=== PATIENT | male | born 1985 | race African-American/Black ===

== ENCOUNTER 2017-01-22 05:07 | Emergency (ER) | payer SELFPAY ==
[2017-01-22] MEDS ORDERED: ALBUTEROL SULFATE/IPRATROPIUM 3 ML NEBU IH ONE ×3 (05:10)
[2017-01-22] MEDS ORDERED: METHYLPREDNISOLONE SOD SUCC/PF 40 MG/ML VIAL IV ONE (05:10)
[2017-01-22 05:39] VITALS: BP 127/76
--- NOTE | 2017-01-22 06:01 | ERNOTE ---
Dyspnea - General Time Seen by Provider: 01/22/17 05:10 Source: patient Exam Limitations: no limitations - Immun/Allergies/Home Medications Immunizations: IMMUNIZATION HX Immunizations Up to Date Yes History of Influenza Vaccine No Hx Pneumococcal Vaccination No Home Medications: HOME MEDICATIONS Albuterol Sulfate [Proair Hfa] 1 - 2 puff IH Q4H PRN #1 inhaler 01/22/17 [Last Taken Unknown] - History of Present Illness Narrative: pt is a diabetic who does not have his inhaler on his person. He has been out for a while. he started feeling short of breath at midnight but did not present to ED till now. Review of Systems - Review of Systems Constitutional: Present: no symptoms reported EYE: Present: no symptoms reported ENT: Present: no symptoms reported Respiratory: Present: See HPI Cardiology: Present: no symptoms reported Gastrointestinal/Abdominal: Present: no symptoms reported - Patient's Past Medical History Patient History - Cardiac/Respiratory: Asthma Patient History - Cancer: No Hx of Cancer Patient History - Other: None - Social History Living Situations: home Abuse History: No History of abuse Psych History: No pertinent hx Smoking Status: Current every day smoker Have you smoked in the past 12 months: Yes Do you dip or chew tobacco: No Alcohol Use: none Drug Use: none - Immunizations Immunizations Up to Date: Yes Hx Pneumococcal Vaccination: No History of Influenza Vaccine: No Physical Exam - Physical Exam General Appearance: Present: wd/wn, other - pt is anxious and is wheezing audibly Ears, Nose, Throat: Present: normal ENT inspection Neck: Present: normal inspection, nontender Respiratory: Present: other - pt has mild respiratory distress and is tachypneic and is wheezing bilaterally only on end expiration ED Progress - Vital Signs Patient's Vital Signs:: I have reviewed the patient's vital signs. Vital Signs: Vital Signs 01/22/17 01/22/17 01/22/17 05:10 05:12 05:21 Temperature 36.6 C Pulse Rate 80 90 82 Respiratory 22 H 22 H 20 Rate Blood Pressure 125/86 O2 Sat by Pulse 96 92 98 Oximetry 01/22/17 05:39 Temperature Pulse Rate 76 Respiratory 18 Rate Blood Pressure 127/76 O2 Sat by Pulse 96 Oximetry - X-Ray X-Ray #1 X-Ray: chest - Progress/Reassessment Chief Complaint: Dyspnea Plan - Plan Plan: pt's wheezing completely disappeared with Breathing treatments X 2. he will be sent home with a prescription for Albuterol inhaler Departure Clinical Impression: Asthma Qualifiers: Asthma severity: unspecified severity Asthma complication type: with acute exacerbation Qualified Code(s): J45.901 - Unspecified asthma with (acute) exacerbation - Departure Disposition: Home self-care Condition: Good Instructions: Bronchospasm, Adult Prescriptions: Albuterol Sulfate [Proair Hfa] 1 - 2 puff IH Q4H PRN #1 inhaler PRN Reason: Shortness Of Breath
== END 2017-01-22 06:05 | disposition home or self-care (01) ==
LOC: ER 05:07
DX: J45.901 Unspecified asthma with (acute) exacerbation (principal); F17.200 Nicotine dependence, unspecified, uncomplicated

== ENCOUNTER 2017-01-30 00:34 | Emergency (ER) | payer MEDICAID ==
[2017-01-30] MEDS ORDERED: METHYLPREDNISOLONE SOD SUCC/PF 125 MG/2 ML VIAL IM ONE (00:48)
--- NOTE | 2017-01-30 00:52 | ERNOTE ---
Date of Service: 01/30/17 Time Seen by Provider: 01/30/17 00:42 Stated Complaint: ASTHMA Presenting Symptoms:: cough Immunizations: IMMUNIZATION HX Immunizations Up to Date Yes History of Influenza Vaccine No Hx Pneumococcal Vaccination No Allergies/Adverse Reactions: Allergies No Known Allergies Allergy (Verified 01/30/17 00:40) Home Medications: HOME MEDICATIONS Albuterol Sulfate [Proair Hfa] 1 - 2 puff IH Q4H PRN #1 inhaler 01/22/17 [Last Taken Unknown] Albuterol Sulfate [Albuterol Sulfate 2.5 MG/0.5ML] 1 vial IH Q4H #30 vial [Last Taken Unknown] Albuterol Sulfate [Ventolin HFA] 1 puff IH Q6H PRN #1 inhaler 01/30/17 [Last Taken Unknown] Prednisone 60 mg PO DAILY #5 tablet 01/30/17 [Last Taken Unknown] - History of Present Ilness Narrative: This is a 31-year-old male with a history of asthma who was seen here in the emergency department one week ago. The patient comes to the emergency department several days after losing his rescue inhaler. The patient says he's been having frequent cough, shortness of breath, wheezing. He says these are his classic stigmata of asthma exacerbation. He complains of a mild occasional sharp chest discomfort which occurs only with respiration last for only a few seconds at a time. The patient denies any chest pain radiating down his left arm and his back into his neck, swelling, nausea, vomiting, or any other symptoms. The patient is a smoker. Review of Systems - Review of Systems Constitutional: Present: no symptoms reported EYE: Present: no symptoms reported ENT: Present: no symptoms reported Respiratory: Present: shortness of breath, cough, wheezing Cardiology: Present: no symptoms reported Gastrointestinal/Abdominal: Present: no symptoms reported Genitourinary: Present: no symptoms reported Musculoskeletal: Present: no symptoms reported Skin: Present: no symptoms reported Neurological: Present: no symptoms reported Endocrine: Present: no symptoms reported Hematologic/Lymphatic: Present: no symptoms reported Psych: Present: no symptoms reported All Other Systems: All systems neg except as marked - Patient's Past Medical History Patient History - Cardiac/Respiratory: Asthma Patient History - Cancer: No Hx of Cancer Patient History - Other: None - Social History Living Situations: home Abuse History: No History of abuse Psych History: No pertinent hx Smoking Status: Current every day smoker Alcohol Use: none Drug Use: none - Immunizations Immunizations Up to Date: Yes Hx Pneumococcal Vaccination: No History of Influenza Vaccine: No Physical Exam - Physical Exam General Appearance: Present: wd/wn, alert, no apparent distress Head Exam: Present: normal inspection, no evidence of injury Eye Exam: Normal inspection: bilateral, PERRL: bilateral, EOMI: bilateral Ears, Nose, Throat: Present: normal ENT inspection, normal pharynx Neck: Present: normal inspection, nontender Respiratory: Present: other - patient has decreased air entry throughout. He has rhonchi in the upper lung potts. Prolonged expiratory phase with wheezing. Cardiovascular/Chest: Present: regular rate, rhythm, no murmur, normal peripheral pulses Gastrointestinal/Abdominal: Present: normal bowel sounds, nontender, nondistended, soft, no organomegaly Back Exam: Present: normal inspection, normal range of motion Extremity Exam: Present: normal inspection, non-tender, no edema Neurological Exam: Present: oriented, normal mood/affect, no motor/sensory deficits Skin Exam: Present: normal color, warm/dry Lymphatic Exam: Present: no adenopathy ED Progress - Vital Signs Patient's Vital Signs:: I have reviewed the patient's vital signs. Vital Signs: Vital Signs 01/30/17 00:37 Temperature 86 C H Pulse Rate 96 Respiratory 20 Rate Blood Pressure 127/67 O2 Sat by Pulse 97 Oximetry - Progress/Reassessment Chief Complaint: Asthma Progress:: Improved Progress Note-Subjective: 01/30/17 02:03 The patient has had 2 breathing treatments as well as a dose of steroids. He still has occasional wheezes but is moving much better air. He says his symptoms have essentially resolved. Departure - Departure Clinical Impression: Asthma Qualifiers: Asthma severity: unspecified severity Asthma complication type: with acute exacerbation Qualified Code(s): J45.901 - Unspecified asthma with (acute) exacerbation Disposition: Home self-care Condition: Stable Instructions: Asthma, Adult, [id number] Additional Instructions: As we have discussed, the single most important thing you can do to improve your own health history quit smoking. I want you to take all 5 days of the prescribed prednisone. Do not stop this early I've given a new inhaler to go home with. Use this as needed to treat your symptoms. If you find herself using it more than twice a week he need to talk to your doctor about another form of treatment. I have also given you a prescription for an albuterol inhaler. Keep this at the pharmacy in case she lives 1. I've given her prescription for albuterol nebulizer treatments. Fill this prescription and use as needed. We have given you a couple of ampules of albuterol solution to go home with. Call and establish care with the family doctor. You should not need to wait and to actually have insurance before he make this appointment. You could certainly tell them you were pending for yourself [id number], and when he has a appointment percent them with your insurance card. Alternately you can pay for the initial visit on your own and Medicaid should reimburse U as long as it is submitted within 90 days. Certainly if you develop fever, difficulty breathing, severe chest pain, or any new concerning symptoms I want you to return to the emergency Department immediately. Prescriptions: Albuterol Sulfate [Ventolin HFA] 1 puff IH Q6H PRN #1 inhaler PRN Reason: Dyspnea Albuterol Sulfate [Albuterol Sulfate 2.5 MG/0.5ML] 1 vial IH Q4H #30 vial Prednisone 60 mg PO DAILY #5 tablet
[2017-01-30] MEDS ORDERED: METHYLPREDNISOLONE SOD SUCC/PF 125 MG/2 ML VIAL ONE (00:53)
[2017-01-30] MEDS ORDERED: ALBUTEROL SULFATE/IPRATROPIUM 3 ML NEBU IH ONE ×3 (00:54→01:42)
[2017-01-30] MEDS: ALBUTEROL SULFATE/IPRATROPIUM 3 ML NEBU IH ONE ×3 (00:59→02:03)
[2017-01-30] MEDS ORDERED: ALBUTEROL SULFATE 2.5 MG/0.5 ML VIAL.NEB IH ONE ×2 (02:03→02:10)
[2017-01-30] MEDS ORDERED: ALBUTEROL SULFATE 200 PUFF INHALER IH ONE (02:03)
[2017-01-30 02:28] VITALS: BP 128/67
== END 2017-01-30 02:27 | disposition home or self-care (01) ==
LOC: ER 00:34
DX: J45.901 Unspecified asthma with (acute) exacerbation (principal); F17.200 Nicotine dependence, unspecified, uncomplicated